=== PATIENT | female | born 1995 | race Caucasian/White ===

== ENCOUNTER 2020-03-04 16:06 | Emergency (ER) | payer MEDICAID ==
[2020-03-04] MEDS ORDERED: HYDROmorphone 1 MG/ML CARPUJECT IVP STA ×2 (16:31→17:42)
--- NOTE | 2020-03-04 16:33 | ED Physician Documentation ---
History of Present Illness - Stated complaint Stated Complaint: RT FLANK PX - Chief complaint Chief Complaint: Abd Pain - History obtained from History obtained from: Patient - History of Present Illness Timing: How many hours ago (27) Pain level max: 10 Pain level now: 10 Radiates to: began right CVA, now RLQ - Additonal information Additional information: 24-year-old female presents to the emergency department with chief complaint of acute onset right flank pain. She has been traveling in a car from [place] for 27 hours. Patient reports a history of nephrolithiasis bilaterally. In the past she has required ureter stents to help relieve obstruction. She no longer has these stents Over the last 24 hours patient has noted that the pain which initially began in her right CVA area has now migrated down to the right lower quadrant. However it is still also present within the right CVA. She has objective chills but no coyd fevers. Some nausea no vomiting. + dysuria but no hematuria. No diarrhea pmh: nephrolithiasis Meds: none Denies etoh; + tobacco 1710: pt is noted to be of her UA with fidnings of infection. Pt states that she is currently on her menses which began about 1 week ago. I discussed the concern for possible ectopic. blood type pending, US of kidneys and pelvis (OB) ordered. CT scan initially ordered has been discontinued Pt is now Review of Systems Constitutional: reports: Chills. denies: Fever Cardiac: denies: Chest pain / pressure, Palpitations Respiratory: denies: Dyspnea, Cough GI: reports: Abdominal Pain, Nausea. denies: Vomiting, Diarrhea : reports: Dysuria, LMP (02/25/20). denies: Frequency, Hesitancy, Hematuria Skin: denies: Rash, Lesions Musculoskeletal: reports: Back pain PD PAST MEDICAL HISTORY - Present Medications Home Medications: Ambulatory Orders Medication Instructions Recorded Confirmed Cephalexin [Keflex] 500 mg PO Q8HR #21 capsule 03/04/20 Hydrocodone/Acetaminophen [[place] 1 each PO BID PRN #5 tablet 03/04/20 5-325 Tablet] - Allergies Allergies/Adverse Reactions: Allergies Allergy/AdvReac Type Severity Reaction Status Date / Time No Known Drug Allergies Allergy Verified 03/04/20 16:19 PD ED PE EXPANDED - General General: Alert, In Pain - Cardiac Cardiac: Regular Rate, Radial strong equal - Respiratory Respiratory: Clear to ausultation ofe. No: Distress, Labored, Stridor - Abdomen Abdomen: Normal Bowel sounds, Other (Right CVA tenderness to palpation. Generalized right flank pain. Tenderness in the right lower quadrant. Negative McBurney's. 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 Cervical office is slightly open. There is no active vaginal bleeding at this time). No: CMT, Adnexal Mass - Back Back: Normal exam, CVA TTP right. No: Vertebral tenderness, CVA TTP left - Derm Derm: Normal color, Warm and dry - Neuro Neuro: Alert and Oriented X 3, CNII-XII intact, PERRL - GCS Eye Opening: Spontaneous Motor: Obeys Commands Verbal: Oriented Total: 15 Results - Vitals Vitals: Vital Signs - 24 hr 03/04/20 03/04/20 03/04/20 16:17 16:19 18:19 Temperature 36.8 C Heart Rate 94 94 92 Respiratory 20 18 16 Rate Blood Pressure 125/71 128/78 130/74 O2 Saturation 98 97 99 03/04/20 19:22 Temperature Heart Rate 59 L Respiratory 18 Rate Blood Pressure 106/68 O2 Saturation 98 Oxygen O2 Source Room air - Labs Labs: Laboratory Tests 03/04/20 03/04/20 03/04/20 16:25 16:25 16:25 WBC 6.8 RBC 5.08 Hgb 15.2 Hct 43.9 MCV 86.4 MCH 29.9 MCHC 34.6 RDW 12.0 Plt Count 295 MPV 10.3 Neut # (Auto) 4.7 Lymph # (Auto) 1.7 [place] # (Auto) 0.4 Eos # (Auto) 0.0 Baso # (Auto) 0.0 Absolute Nucleated RBC 0.00 Nucleated RBC % 0.0 Sodium 136 Potassium 3.1 L Chloride 102 Carbon Dioxide 22 Anion Gap 12.0 BUN 5 L Creatinine 0.7 Estimated GFR (MDRD) 105 Glucose 104 H Calcium 9.6 Total Bilirubin 1.5 H AST 23 ALT 22 Alkaline Phosphatase 48 Total Protein 8.4 H Albumin 5.0 Globulin 3.4 Albumin/Globulin Ratio 1.5 Lipase 33 HCG, Quant Urine Color YELLOW Urine Clarity HAZY Urine pH 6.0 Ur Specific [place] 1.015 Urine Protein NEGATIVE Urine Glucose (UA) NEGATIVE Urine Ketones 40 H Urine Occult Blood TRACE-INTA Urine Nitrite POSITIVE H Urine Bilirubin NEGATIVE Urine Urobilinogen 0.2 (NORMAL) Ur Leukocyte Esterase MODERATE H Urine RBC 0-5 Urine WBC >25 H Ur Squamous Epith Cells NONE SEEN Urine Bacteria Many H Ur Microscopic Review INDICATED Urine Culture Comments INDICATED Urine HCG, Qual POSITIVE Blood Type 03/04/20 03/04/20 16:25 17:25 WBC RBC Hgb Hct MCV MCH MCHC RDW Plt Count MPV Neut # (Auto) Lymph # (Auto) [place] # (Auto) Eos # (Auto) Baso # (Auto) Absolute Nucleated RBC Nucleated RBC % Sodium Potassium Chloride Carbon Dioxide Anion Gap BUN Creatinine Estimated GFR (MDRD) Glucose Calcium Total Bilirubin AST ALT Alkaline Phosphatase Total Protein Albumin Globulin Albumin/Globulin Ratio Lipase HCG, Quant 2018.00 Urine Color Urine Clarity Urine pH Ur Specific [place] Urine Protein Urine Glucose (UA) Urine Ketones Urine Occult Blood Urine Nitrite Urine Bilirubin Urine Urobilinogen Ur Leukocyte Esterase Urine RBC Urine WBC Ur Squamous Epith Cells Urine Bacteria Ur Microscopic Review Urine Culture Comments Urine HCG, Qual Blood Type O POSITIVE - Rads (name of study) Renal US: Radiology: Final report received (no stones or hydronephrosis) OB Pelvis Radiology: Final report received (There is no sonographic evidence of intrauterine conceptus Or ectopic . Unfortunately these findings are highly nonspecific and could represent early viable completed or impending as well as ectopic. Continued clinical and imaging follow-up including serial ult) PD MEDICAL DECISION MAKING - ED course Complexity details: reviewed results, re-evaluated patient, d/w patient, d/w eco industrial development consultant (Dr. Baez highway traffic control technician for OBGYN) ED course: 24-year-old female here with about 27 hours of acute right flank pain that has migrated down to her right lower quadrant. Patient reports a history of nephrolithiasis. She reports that she is currently on her menses but her urine is positive. - Patient's urine is night to try positive and suggestive of urinary tract infection. She was given ceftriaxone 1 g here in the emergency department and she will be discharged prescribed Keflex on discharge. She has no leukocytosis or fever. I have lower suspicion for Pyelonephritis At this time. - Because she is we completed a renal ultrasound to evaluate for stones or hydro give her location of pain and the history of previous renal colic requiring ureter stents. None were seen. She may still be passing a stone however it does not appear to be causing obstruction at this time. -OB pelvic ultrasound was completed. There was no finding of an IUP. Patient is O+. A limited pelvic exam was done and she had no adnexal tenderness. Her cervical office was slightly open at 1 cm. I discussed these phone results with Dr. Baez on-call for OB. He agrees that patient needs to return in 48 hours for a repeat serum hCG and if rising repeat OB ultrasound. At this time patient carries a diagnosis of threatened miscarriage, but can not r/o ectopic -I have discussed these findings in detail with the patient.She agrees to return to the emergency department in 48 hours for repeat testing. At this time her pain is controlled and she is not having any vaginal bleeding. We discussed that she is to return sooner for worsening pain, fever, severe vaginal bleeding, or any other emergent concerns . Departure - Departure Disposition: 01 Home, Self Care Clinical Impression: Threatened miscarriage in early , Right flank pain UTI (urinary tract infection) Qualifiers: Urinary tract infection type: acute cystitis Hematuria presence: without hematuria Qualified Code(s): N30.00 - Acute cystitis without hematuria Instructions: ED Abdominal Pain Rule Out Ectopic, ED Miscarriage Poss Prescriptions: Cephalexin [Keflex] 500 mg PO Q8HR #21 capsule Hydrocodone/Acetaminophen [[place] 5-325 Tablet] 1 each PO BID PRN #5 tablet PRN Reason: Pain Comments: Aydee I hope that you feel better soon. You are found to be today. You had reported vaginal bleeding. We did do a pelvic ultrasound and at this time we cannot confirm an intrauterine . This may mean that you are in the process of having a miscarriage, it is too early to see a or that there is outside of your uterus. It is critical that you return here within 48 hours for repeat hormone levels and ultrasound imaging. The ultrasound of your kidneys did not show any stones or swelling in the kidne ys. We do note that you have an infection in your urine today. We have given you a first dose of IV antibiotics in the emergency department and tomorrow you must fill the prescription for the oral antibiotics and begin taking as prescribed If your pain is worsening, you have fevers, you have uncontrolled vomiting, a racing heart, or severe vaginal bleeding then return immediately to the emergenc y department for recheck. Do not return to [place] until you have had this recheck.
[2020-03-04 16:41] LABS: BASOPHILS % (AUTO) 0.1 %; HGB - HEMOGLOBIN 15.2 g/dL (12.0-16.0); LYMPHOCYTES # (AUTO) 1.7 10^3/uL (1.5-3.5); LYMPHOCYTES % (AUTO) 25.4 %; MEAN CORPUSCULAR HEMOGLOBIN 29.9 pg (27.0-31.0); MEAN CORPUSCULAR HGB CONC 34.6 g/dL (32.0-36.0); MEAN CORPUSCULAR VOLUME 86.4 fL (81.0-99.0); MEAN PLATELET VOLUME 10.3 fL (7.9-10.8); MONOCYTES # (AUTO) 0.4 10^3/uL (0.0-1.0); MONOCYTES % (AUTO) 5.7 %; NEUTROPHILS # (AUTO) 4.7 10^3/uL (1.5-6.6); NEUTROPHILS % (AUTO) 68.7 %; PLT - PLATELET COUNT 295 10^3/uL (130-450); RED BLOOD COUNT 5.08 10^6/uL (4.20-5.40); WHITE BLOOD COUNT 6.8 x10^3/uL (4.8-10.8)
[2020-03-04 16:46] LABS: BILIRUBIN,URINE NEGATIVE (NEGATIVE); GLUCOSE, URINE (UA) NEGATIVE (NEGATIVE); KETONES,URINE (UA) 40 mg/dL (NEGATIVE); LEUKOCYTE ESTERASE, URINE MODERATE (NEGATIVE); NITRITE,URINE POSITIVE (NEGATIVE); OCCULT BLOOD,URINE TRACE-INTA (NEGATIVE); PROTEIN,URINE NEGATIVE (NEGATIVE); UROBILINOGEN,URINE 0.2 (NORMAL) E.U./dL (NORMAL)
[2020-03-04 16:47] LABS: CLARITY,URINE HAZY (CLEAR)
[2020-03-04 16:49] LABS: HCG UR QUAL POSITIVE
[2020-03-04 16:54] LABS: ALBUMIN/GLOBULIN RATIO 1.5 (1.0-2.2); BILIRUBIN,TOTAL 1.5 mg/dL (0.2-1.0); CALCIUM 9.6 mg/dL (8.5-10.3); CREATININE 0.7 mg/dL (0.4-1.0); TOTAL PROTEIN 8.4 g/dL (6.7-8.2)
[2020-03-04 16:56] LABS: BACTERIA,URINE Many /HPF (None Seen); RBC,URINE 0-5 /HPF (0-5); SQUAMOUS EPITHELIAL CELL,UR NONE SEEN (<= Few)
[2020-03-04] MEDS ORDERED: cefTRIAXone 1 GM in SODIUM CHLORIDE 0.9% MINIBAG 100 ML IV STA (17:17)
[2020-03-04] MEDS ORDERED: SODIUM CHLORIDE 0.9% 1,000 ML IV STA (18:18)
[2020-03-04] MEDS ORDERED: POTASSIUM CHLORIDE 20 MEQ TABLET PO STA (18:22)
--- NOTE | 2020-03-04 19:11 | Ultrasound Report ---
PROCEDURE: OB First Trimester INDICATIONS: Vaginal bleeding and right frontal length pain in the setting of TECHNIQUE: Real-time scanning was performed of the fetus and maternal pelvic organs, with image documentation. COMPARISON: None FINDINGS: There is irregular septated cystic material filling the uterine cavity. There is no well-defined gest ational sac or fetus identified. No placenta is clearly delineated. The endometrium does demonstrate increased vascularity. There is no evidence of ectopic . There is small volume fluid in the cul-de-sac. IMPRESSION: There is no sonographic evidence of intrauterine conceptus or ectopic . Unfortunately, these findings are highly nonspecific and could represent early viable , completed , or i mpending , as well as ectopic. Continued clinical and imaging follow-up, including serial ult rasound and trending of quantitative hCG will be needed to differentiate these entities. Reviewed by: Bryant Jeffrey MD on 03/04/2020 7:10 PM PDT Approved by: Bryant Jeffrey MD on 03/04/2020 7:10 PM PDT Station ID: [id number]
[2020-03-04 19:23] VITALS: BP 106/68
--- NOTE | 2020-03-04 20:42 | Ultrasound Report ---
PROCEDURE: OB First Trimester INDICATIONS: Vaginal bleeding and right frontal length pain in the setting of TECHNIQUE: Real-time scanning was performed of the fetus and maternal pelvic organs, with image documentation. COMPARISON: None FINDINGS: There is irregular septated cystic material filling the uterine cavity. There is no well-defined gest ational sac or fetus identified. No placenta is clearly delineated. The endometrium does demonstrate increased vascularity. There is no evidence of ectopic . There is small volume fluid in the cul-de-sac. IMPRESSION: There is no sonographic evidence of intrauterine conceptus or ectopic . Unfortunately, these findings are highly nonspecific and could represent early viable , completed , or i mpending , as well as ectopic. Continued clinical and imaging follow-up, including serial ult rasound and trending of quantitative hCG will be needed to differentiate these entities. Reviewed by: Bryant Jeffrey MD on 03/04/2020 8:40 PM PDT Approved by: Bryant Jeffrey MD on 03/04/2020 8:40 PM PDT Station ID: [id number]
--- NOTE | 2020-03-05 16:03 | Ultrasound Report ---
PROCEDURE: Retroperitoneal ultrasound INDICATIONS: Right flank pain, history of renal stones TECHNIQUE: Real-time scanning was performed of the retroperitoneal organs, with image documentation. COMPARISON: None. FINDINGS: Kidneys: Both kidneys normal in size and appearance. No hydronephrosis. No evidence of renal atrophy. No shadowing renal or proximal ureteral calculus demonstrated. Urinary bladder: No post void residual. Urinary bladder unremarkable. IMPRESSION: Normal renal ultrasound. Reviewed by: Bryant Jeffrey MD on 03/04/2020 7:11 PM PDT Approved by: Bryant Jeffrey MD on 03/04/2020 7:11 PM PDT Station ID: [id number]
== END 2020-03-04 20:43 | disposition home or self-care (01) ==
LOC: ED 16:06
DX: O20.0 Threatened abortion (principal); O23.11 Infections of bladder in pregnancy, first trimester; Z3A.01 Less than 8 weeks gestation of pregnancy
CPT/HCPCS: 36415; 76770; 76801; 76817; 80053; 81001; 81025; 83690; 84702; 85025; 86900; 86901; 87077; 87086; 87181; 96365; 96366; 96375; 96376; 99284; A9270; J1170; 81003

== ENCOUNTER 2020-03-05 10:20 | Inpatient (IN) | payer MEDICAID ==
[2020-03-05 10:57] LABS: BASOPHILS % (AUTO) 0.2 %; EOSINOPHILS % (AUTO) 0.2 %; HGB - HEMOGLOBIN 14.5 g/dL (12.0-16.0); LYMPHOCYTES # (AUTO) 1.5 10^3/uL (1.5-3.5); MEAN CORPUSCULAR HEMOGLOBIN 29.8 pg (27.0-31.0); MEAN CORPUSCULAR HGB CONC 33.7 g/dL (32.0-36.0); MEAN CORPUSCULAR VOLUME 88.3 fL (81.0-99.0); MEAN PLATELET VOLUME 10.1 fL (7.9-10.8); MONOCYTES # (AUTO) 0.2 10^3/uL (0.0-1.0); MONOCYTES % (AUTO) 4.4 %; NEUTROPHILS # (AUTO) 3.5 10^3/uL (1.5-6.6); NEUTROPHILS % (AUTO) 66.8 %; PLT - PLATELET COUNT 282 10^3/uL (130-450); RED BLOOD COUNT 4.87 10^6/uL (4.20-5.40); RED CELL DISTRIBUTION WIDTH 12.2 % (12.0-15.0); WHITE BLOOD COUNT 5.3 x10^3/uL (4.8-10.8)
[2020-03-05 11:17] LABS: ALBUMIN 4.2 g/dL (3.2-5.5); ALBUMIN/GLOBULIN RATIO 1.4 (1.0-2.2); BILIRUBIN,TOTAL 1.3 mg/dL (0.2-1.0); CALCIUM 9.3 mg/dL (8.5-10.3); CREATININE 0.7 mg/dL (0.4-1.0); TOTAL PROTEIN 7.3 g/dL (6.7-8.2)
--- NOTE | 2020-03-05 12:34 | ED Physician Documentation ---
PD HPI FEMALE - Stated complaint Stated Complaint: FEMALE /FEVER - Chief complaint Chief Complaint: Abd Pain - History obtained from History obtained from: Patient - History of Present Illness Timing - onset: How many days ago (2-3) Timing - duration: Days (2-3) Timing - details: Gradual onset, Still present Associated symptoms: Pelvic pain, Vaginal bleeding. No: Fever, Vaginal discharge Contributing factors: (She states her last period was about 2 weeks ago so is not sure how far she is) Recently seen: Emergency Dept (yesterday with Quant 2018, and U/S done showing no found IUP nor adnexal abnormal.) Review of Systems Constitutional: reports: Fever (felt flushed/warm with pain episodes last night.), Chills Nose: denies: Rhinorrhea / runny nose, Congestion Throat: denies: Sore throat Respiratory: denies: Cough GI: reports: Abdominal Pain, Nausea. denies: Vomiting, Diarrhea : reports: Vaginal bleeding, Now EGA. 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 CONTROL TECHNICIAN: None : None HEENT: None Psych: None Musculoskeletal: None Derm: None - Past Surgical History Past Surgical History: Yes - Present Medications Home Medications: Ambulatory Orders Medication Instructions Recorded Confirmed Cephalexin [Keflex] 500 mg PO Q8HR #21 capsule 03/04/20 Hydrocodone/Acetaminophen [[place] 1 each PO BID PRN #5 tablet 03/04/20 5-325 Tablet] - Allergies Allergies/Adverse Reactions: Allergies Allergy/AdvReac Type Severity Reaction Status Date / Time No Known Drug Allergies Allergy Verified 03/05/20 10:29 - Social History Does the pt smoke?: No Smoking Status: Never smoker Does the pt drink ETOH?: Yes Does the pt have substance abuse?: No - Immunizations Immunizations are current?: Yes PD ED PE NORMAL - Vitals Vital signs reviewed: Yes - General General: Alert and oriented X 3, Well developed/nourished, Other (She appears in considerable pain and holding her lower abdomen.) - Neck Neck: Supple, no meningeal sign, No adenopathy - Cardiac Cardiac: RRR, No murmur - Respiratory Respiratory: Clear bilaterally - Abdomen Abdomen: Normal bowel sounds, Soft, Non distended, Other (The patient is tender in the suprapubic and lower abdomen area. Bowel sounds are present but diminished. She is not tender in the upper abdomen. There is no percussion or rebound tenderness.) - Female Female : Deferred - Rectal Rectal: Deferred - Back Back: No CVA TTP - Derm Derm: Normal color, Warm and dry - Extremities Extremities: Normal ROM s pain, No edema, No calf tenderness / cord - Neuro Neuro: Alert and oriented X 3, No motor deficit, Normal speech Results - Vitals Vitals: Vital Signs - 24 hr 03/05/20 03/05/20 03/05/20 10:30 11:58 13:00 Temperature 37 C Heart Rate 84 63 77 Respiratory 16 21 18 Rate Blood Pressure 108/91 H 119/54 L 116/74 O2 Saturation 100 100 98 03/05/20 03/05/20 15:00 15:59 Temperature Heart Rate 50 L 55 L Respiratory 16 16 Rate Blood Pressure 115/64 125/80 O2 Saturation 100 100 Oxygen O2 Source Room air - Labs Labs: Laboratory Tests 03/05/20 03/05/20 03/05/20 10:54 10:54 10:54 WBC 5.3 RBC 4.87 Hgb 14.5 Hct 43.0 MCV 88.3 MCH 29.8 MCHC 33.7 RDW 12.2 Plt Count 282 MPV 10.1 Neut # (Auto) 3.5 Lymph # (Auto) 1.5 [place] # (Auto) 0.2 Eos # (Auto) 0.0 Baso # (Auto) 0.0 Absolute Nucleated RBC 0.00 Nucleated RBC % 0.0 Sodium 140 Potassium 3.6 Chloride 110 Carbon Dioxide 22 Anion Gap 8.0 BUN 7 Creatinine 0.7 Estimated GFR (MDRD) 105 Glucose 109 H Calcium 9.3 Total Bilirubin 1.3 H AST 23 ALT 22 Alkaline Phosphatase 43 Total Protein 7.3 Albumin 4.2 Globulin 3.1 Albumin/Globulin Ratio 1.4 Lipase 34 HCG, Quant 1875.00 Urine Color Urine Clarity Urine pH Ur Specific [place] Urine Protein Urine Glucose (UA) Urine Ketones Urine Occult Blood Urine Nitrite Urine Bilirubin Urine Urobilinogen Ur Leukocyte Esterase Urine RBC Urine WBC Ur Squamous Epith Cells Urine Bacteria Ur Microscopic Review Urine Culture Comments 03/05/20 11:45 WBC RBC Hgb Hct MCV MCH MCHC RDW Plt Count MPV Neut # (Auto) Lymph # (Auto) [place] # (Auto) Eos # (Auto) Baso # (Auto) Absolute Nucleated RBC Nucleated RBC % Sodium Potassium Chloride Carbon Dioxide Anion Gap BUN Creatinine Estimated GFR (MDRD) Glucose Calcium Total Bilirubin AST ALT Alkaline Phosphatase Total Protein Albumin Globulin Albumin/Globulin Ratio Lipase HCG, Quant Urine Color YELLOW Urine Clarity SL. CLOUDY Urine pH 6.5 Ur Specific [place] 1.015 Urine Protein NEGATIVE Urine Glucose (UA) NEGATIVE Urine Ketones 40 H Urine Occult Blood NEGATIVE Urine Nitrite NEGATIVE Urine Bilirubin NEGATIVE Urine Urobilinogen 0.2 (NORMAL) Ur Leukocyte Esterase LARGE H Urine RBC 0-5 Urine WBC >25 H Ur Squamous Epith Cells MANY Squamous H Urine Bacteria Few Ur Microscopic Review INDICATED Urine Culture Comments NOT INDICATED - Rads (name of study) OB U/S Radiology: Prelim report reviewed (No ovarian abnormalities seen. There is material in the uterus. There is thickened endometrial tissue.), See rad report PD MEDICAL DECISION MAKING - ED course Complexity details: reviewed results, re-evaluated patient (She is requiring repeated doses of pain medicines. Her ultrasound does show a fair amount of material in the uterus likely blood and clots. She is not having significant bleeding but her pain is intractable. I talked with Dr. Manning is on-call for ART GLASS DESIGNER who will come see the patient), considered differential (Patient has had increased pain and moderate increase in bleeding since yesterday. There was concern for potential miscarriage versus undiagnosed ectopic with a hCG level of 2000 and the ultrasound not showing a clear IUP or ovarian problems), d/w patient Departure - Departure Disposition: ED Transfer to [facility] Clinical Impression: Pelvic pain, Incomplete miscarriage Condition: Stable Record reviewed to determine appropriate education?: Yes
[2020-03-05] MEDS ORDERED: HYDROmorphone 1 MG/ML CARPUJECT IVP STA ×3 (12:40→15:12)
[2020-03-05] MEDS ORDERED: SODIUM CHLORIDE 0.9% 1,000 ML IV STA (12:40)
[2020-03-05] MEDS ORDERED: KETOROLAC 30 MG/ML VIAL IVP STA (12:41)
[2020-03-05] MEDS ORDERED: ONDANSETRON 4 MG/2 ML VIAL IVP STA (12:41)
[2020-03-05 14:19] LABS: BILIRUBIN,URINE NEGATIVE (NEGATIVE); GLUCOSE, URINE (UA) NEGATIVE (NEGATIVE); KETONES,URINE (UA) 40 mg/dL (NEGATIVE); LEUKOCYTE ESTERASE, URINE LARGE (NEGATIVE); NITRITE,URINE NEGATIVE (NEGATIVE); OCCULT BLOOD,URINE NEGATIVE (NEGATIVE); PH,URINE 6.5 PH (5.0-7.5); PROTEIN,URINE NEGATIVE (NEGATIVE); UROBILINOGEN,URINE 0.2 (NORMAL) E.U./dL (NORMAL)
[2020-03-05 14:22] LABS: CLARITY,URINE SL. CLOUDY (CLEAR)
[2020-03-05 14:44] LABS: BACTERIA,URINE Few /HPF (None Seen); RBC,URINE 0-5 /HPF (0-5); SQUAMOUS EPITHELIAL CELL,UR MANY Squamous (<= Few)
--- NOTE | 2020-03-05 15:31 | Ultrasound Report ---
PROCEDURE: OB First Trimester INDICATIONS: increased RLQ pain from yesterday OUTSIDE/PRIOR DATING DATA: Last menstrual period (LMP): Unknown. LMP-based estimated date of delivery (JEVON): Unknown. First dating scan (date and location): 03/04/2020. Estimated date of delivery (JEVON) from first dating scan: Not applicable. TECHNIQUE: Real-time scanning was performed of the fetus and maternal pelvic organs, with image documentation. COMPARISON: OB ultrasound 03/04/2020 FINDINGS: Embryo: There is no visualized intrauterine or extrauterine . Endometrium is heterogeneous with mild appearance of increased vascularity. Measurement variability in dating: +/- 4 weeks by LMP, +/- 7 days by mean sac diameter (use before 6 weeks gestation if crown-rump length not able to be measured), +/- 5 days by crown-rump length (6-12 weeks gestation). Maternal organs: Ovaries are unremarkable. Limited images through the kidneys demonstrate no hydron ephrosis. IMPRESSION: 1. Unchanged appearance compared to prior exam without demonstration of intra or extrauterine pregnan cy. There is irregularity within the endometrium increased vascularity. Recommend continued interval follow-up with ultrasound and correlation to beta hCG levels as appropriate. Differential diagnosis r emains early too small for visualization, completed or impending for nonvisualized ectopic. Reviewed by: Charlee Pérez MD on 03/05/2020 3:29 PM PDT Approved by: Charlee Pérez MD on 03/05/2020 3:29 PM PDT Station ID: [id number]
--- NOTE | 2020-03-05 15:32 | Ultrasound Report ---
PROCEDURE: OB First Trimester INDICATIONS: increased RLQ pain from yesterday OUTSIDE/PRIOR DATING DATA: Last menstrual period (LMP): Unknown. LMP-based estimated date of delivery (JEVON): Unknown. First dating scan (date and location): 03/04/2020. Estimated date of delivery (JEVON) from first dating scan: Not applicable. TECHNIQUE: Real-time scanning was performed of the fetus and maternal pelvic organs, with image documentation. COMPARISON: OB ultrasound 03/04/2020 FINDINGS: Embryo: There is no visualized intrauterine or extrauterine . Endometrium is heterogeneous with mild appearance of increased vascularity. Measurement variability in dating: +/- 4 weeks by LMP, +/- 7 days by mean sac diameter (use before 6 weeks gestation if crown-rump length not able to be measured), +/- 5 days by crown-rump length (6-12 weeks gestation). Maternal organs: Ovaries are unremarkable. Limited images through the kidneys demonstrate no hydron ephrosis. IMPRESSION: 1. Unchanged appearance compared to prior exam without demonstration of intra or extrauterine pregnan cy. There is irregularity within the endometrium increased vascularity. Recommend continued interval follow-up with ultrasound and correlation to beta hCG levels as appropriate. Differential diagnosis r emains early too small for visualization, completed or impending for nonvisualized ectopic. Reviewed by: Charlee Pérez MD on 03/05/2020 3:30 PM PDT Approved by: Charlee Pérez MD on 03/05/2020 3:30 PM PDT Station ID: [id number]
[2020-03-05] MEDS ORDERED: LACTATED RINGERS 1,000 ML IV STA (16:27)
[2020-03-05] MEDS ORDERED: fentaNYL 100 MCG/2 ML VIAL IVP STA (16:28)
[2020-03-05] MEDS ORDERED: fentaNYL 100 MCG/2 ML VIAL IVP ONE (17:32)
--- NOTE | 2020-03-05 17:35 | HISTORY & PHYSICAL EXAMINATION ---
Chief Complaint - Chief Complaint Chief Complaint: Cramping History of Present Illness - History of Present Illness HPI Comment/Other: 2nd visit to ER within 24h for abd pain. At first felt like R flank pain--pt had cystitis treated with cephalosporin and taking keflex at home. [place] diagnosed. Last hs pt had increasing bleeding changed pads 4x overnight. Today changed about 3x. 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 No tobacco or drug use. ) Meds/Allgy - Home Medications Home Medications: Ambulatory Orders Medication Instructions Recorded Confirmed Cephalexin [Keflex] 500 mg PO Q8HR #21 capsule 03/04/20 Hydrocodone/Acetaminophen [[place] 1 each PO BID PRN #5 tablet 03/04/20 5-325 Tablet] - Allergies Allergies/Adverse Reactions: Allergies Allergy/AdvReac Type Severity Reaction Status Date / Time No Known Drug Allergies Allergy Verified 03/05/20 10:29 Exam - Vital Signs Vital Signs: Vital Signs x48h Temp Pulse Resp BP Pulse Ox 03/05/20 17:00 70 16 131/73 H 100 03/05/20 15:59 55 L 16 125/80 100 03/05/20 15:00 50 L 16 115/64 100 03/05/20 13:00 77 18 116/74 98 03/05/20 11:58 63 21 119/54 L 100 03/05/20 10:30 98.6 F 84 16 108/91 H 100 - Physical Exam Comments/Other: Alert, grimacing, holding abdomen Cor RRR no murmurs Lungs CTA bilat Abd soft, no rebound, no guard, mildly tender Conclusion/Plan - Problem List (1) Incomplete miscarriage Conclusion/Plan: 24yo G1 with likely incomplete SAB. Ultrasound has a bizarre appearance of the uterine cavity--some blood flow there and lots of debris--4cm diameter. HCG dropped in 24h from 2018 to 1875. Doubt molar due to that. Doubt ectopic preg due to large volume of debris in the uterine cavity, absence of adnexal masses, and lack of free fluid. Pt currently in severe pain and has required multiple rounds of narcotics. Discussed options for immediate surgical vs. at home medical management of SAB. Surgical tx works nearly always and home mgmt can fail 10% of the time. Pt desires D&C. Discussed procedure and recovery. Risks include bleeding, infection, trauma to local organs, anesthesia complications, and failure to cure. All questions answered and consent signed. OR team being called in. Has been NPO for hours. Rh + If patient wakes from surgery and does not feel better then will need to eval for other causes of abd pain. Hx of kidney stones but it doesn't feel like that to the pt. Acute cystitis being treated on antibiotic day #2. Renal US yesterday was normal; no hydro. Normal CBC and CMP. Has not gotten a CT scan. - Lab Results Fish Bones: 03/05/20 10:54 03/05/20 10:54
--- NOTE | 2020-03-05 18:11 | ANESTHESIA ---
Pre-Anesthesia VS, & Labs - Diagnosis incomplete AB - Procedure suction D&C Vital Signs: Temp Pulse Resp BP Pulse Ox 37 C 70 16 131/73 H 100 03/05/20 10:30 03/05/20 17:00 03/05/20 17:00 03/05/20 17:00 03/05/20 17:00 Height 5 ft 6 in Weight (kg) 96.162 kg Body Mass Index 34.2 - NPO >8 hours - Is Patient ?: Yes (missed AB) - Lab Results Current Lab Results: Laboratory Tests 03/05/20 10:54: HCG, Quant 1875.00 03/05/20 10:54: Sodium 140, Potassium 3.6, Chloride 110, Carbon Dioxide 22, Anion Gap 8.0, BUN 7, Creatinine 0.7, Estimated GFR (MDRD) 105, Glucose 109 H, Calcium 9.3, Total Bilirubin 1.3 H, AST 23, ALT 22, Alkaline Phosphatase 43, Total Protein 7.3, Albumin 4.2, Globulin 3.1, Albumin/Globulin Ratio 1.4, Lipase 34 03/05/20 10:54: WBC 5.3, RBC 4.87, Hgb 14.5, Hct 43.0, MCV 88.3, MCH 29.8, MCHC 33.7, RDW 12.2, Plt Count 282, MPV 10.1, Neut # (Auto) 3.5, Lymph # (Auto) 1.5, [place] # (Auto) 0.2, Eos # (Auto) 0.0, Baso # (Auto) 0.0, Absolute Nucleated RBC 0.00, Nucleated RBC % 0.0 Fish Bones: 03/05/20 10:54 03/05/20 10:54 Home Medications and Allergies Active Medications Lactated Ringer's (Lr) 1,000 mls @ 500 mls/hr IV .Q2H STA Stop: 03/05/20 18:26 Last Admin: 03/05/20 16:47 Dose: 500 mls/hr Documented by: Allergies/Adverse Reactions: Allergies Allergy/AdvReac Type Severity Reaction Status Date / Time No Known Drug Allergies Allergy Verified 03/05/20 10:29 Anes History & Medical History - Anesthetic History Anesthesia Complications: reports: No previous complications Family history of Anesthesia Complications: Denies Family history of Malignant Hyperthermia: Denies - Medical History Cardiovascular: reports: None Pulmonary: reports: None Gastrointestinal: reports: None Urinary: reports: None Neuro: reports: None Musculoskeletal: reports: None Endocrine/Autoimmune: reports: None Blood Disorders: reports: None Skin: reports: None Smoking Status: Never smoker - Surgical History Urologic: Kidney stents Other Past Surgical History: None Exam General: Alert, Oriented x3, Cooperative Dental: WNL Mouth Openin Fingerbreadth Neck Mobility: Normal Mallampati classification: II Thyromental Distance: greater than 6 cm Respiratory: Lungs clear, Normal breath sounds Cardiovascular: Regular rate Neurological: Normal speech Mental/Cognitive Status: Alert/Oriented X3, Normal for patient Cognitive Status: Within normal limits Plan Anesthesia Type: MAC Consent for Procedure(s) Verified and Reviewed: Yes Code Status: Attempt Resuscitation ASA classification: 2-Mild systemic disease Is this case an emergency?: Yes
[2020-03-05] MEDS ORDERED: LACTATED RINGERS 1,000 ML IV ONE ×2 (18:24→20:00)
[2020-03-05] MEDS ORDERED: LIDOCAINE 1%-EPI 1:100000 20 ML MDV ONE (18:33)
[2020-03-05] MEDS ORDERED: SILVER NITRATE APPLICATOR TOP ONE (18:34)
[2020-03-05] MEDS ORDERED: KETOROLAC 30 MG/ML VIAL IVP ONE (18:47)
[2020-03-05] MEDS ORDERED: MIDAZOLAM 2 MG/2 ML VIAL IVP ONE (18:47)
[2020-03-05] MEDS ORDERED: KETAMINE 500 MG/10 ML VIAL IVP ONE (18:47)
[2020-03-05] MEDS ORDERED: PROPOFOL 200 MG/20 ML VIAL IVP ONE (18:47)
[2020-03-05] MEDS ORDERED: LIDOCAINE 1%-EPI 1:100000 20 ML MDV SUBQ ONE (19:05)
--- NOTE | 2020-03-05 19:36 | OPERATIVE REPORT ---
Operative Report - General Procedure Date: 03/05/20 Pre-Op Diagnosis: Incomplete miscarriage Procedure Performed: D&C Post Op Diagnosis: same - Procedure Note Primary Surgeon: Sabi Manning Anesthesia Technique: Moderate sedation Pathology: Products of conception IV Fluids (mL): 700 Estimated Blood Loss (mL): 60 Findings: Normal external geniatlia Complications: none
[2020-03-05] MEDS: fentaNYL 100 MCG/2 ML VIAL ONE ×2 (19:47→19:55)
[2020-03-05] MEDS ORDERED: ONDANSETRON 4 MG/2 ML VIAL IVP PRN ×2 (20:32→21:40)
[2020-03-05] MEDS ORDERED: ZOLPIDEM 5 MG TABLET PO ONE ×2 (20:37→22:00)
[2020-03-05] MEDS ORDERED: oxyCODONE 5 MG TABLET PO PRN (20:39)
[2020-03-05] MEDS ORDERED: LACTATED RINGERS 1,000 ML IV SCH (21:00)
[2020-03-05] MEDS ORDERED: ACETAMINOPHEN 500 MG TABLET PO SCH ×2 (21:00→22:00)
[2020-03-05] MEDS ORDERED: IOVERSOL 320 100 ML VIAL IVP ONE (21:24)
[2020-03-05] MEDS: oxyCODONE 5 MG TABLET PO PRN (21:48)
--- NOTE | 2020-03-05 21:53 | CT Report ---
PROCEDURE: Abdomen/Pelvis W INDICATIONS: persistent abd pain. Got D C at 17:00 for SAB CONTRAST: IV CONTRAST: Optiray 320 ml: 100 PO CONTRAST: *NO PO CONTRAST TECHNIQUE: After the administration of oral and intravenous contrast, 5 mm thick sections acquired from the diap hragms to the symphysis. 5 mm thick coronal and sagittal reformats were acquired. For radiation dos e reduction, the following was used: automated exposure control, adjustment of mA and/or kV accordin g to patient size. COMPARISON: None. FINDINGS: Image quality: Excellent. ABDOMEN: Lung bases: Minimal bibasilar atelectasis. Heart size is normal. Solid organs: Liver and spleen are normal in size and enhancement. Gallbladder is unremarkable Beau iary system is non dilated. Pancreas enhances normally. No adrenal nodules. Kidneys demonstrate no rmal size and enhancement, without hydronephrosis. Peritoneum and bowel: Bowel loops demonstrate normal wall thickness and caliber. No free fluid or a ir. Nodes and vessels: No retroperitoneal or mesenteric adenopathy by size criteria. Aorta and inferior vena cava are normal in size. Miscellaneous: No ventral hernias. PELVIS: Genitourinary: Bladder wall thickness is normal. Miscellaneous: No inguinal hernias or adenopathy. There is expansile tissue filling the endometrial cavity measuring 5.8 cm in diameter. There is hypervascularity. Cannot exclude acute hemorrhage. Con v block saw operator gestational trophoblastic neoplasm (molar ). Bones: No suspicious bony lesions. No vertebral body compression fractures. IMPRESSION: Expansile heterogeneous hypervascular tissue expanding the endometrial cavity. Cannot ex clude acute extravasation. Consider molar versus products of conception or hemorrhage and c lot. Suggest clinical correlation. Reviewed by: Mauricio Lindsay MD on 03/05/2020 9:52 PM PDT Approved by: Mauricio Lindsay MD on 03/05/2020 9:52 PM PDT Station ID: [id number]
--- NOTE | 2020-03-05 22:50 | DISCHARGE TRANSFER SUMMARY ---
"Transfer Summary Admit Date: 03/05/20 Transfer Date: 03/05/20 Discharging Provider: Sabi Manning Code Status: Attempt Resuscitation Condition at Discharge: Stable Discharge Disposition: 02 Transfer Acute Care Hosp - DIAGNOSES Admission Diagnoses: Uterine mass Abdominal pain Vaginal bleeding Discharge Diagnoses with Status of Each Condition: same dx and not improved - CONSULTS | PROCEDURES Procedures: D&C 03/05/20 - HOSPITAL COURSE Hospital Course: Patient had been seen in the ER twice in 24h for abdominal pain. Yesterday she was diagnosed with acute cystitis and she had an abnormal UA. Renal US was normal. Patient has a history of nephrolithiasis but this current pain does not feel like a stone to her. Got a cephalosporin in the ER followed by maryse at home. Pain did not improve, became more midline and crampy, 10/10. Pt had found out yesterday that she was . Was not trying to conceive and was unaware of . Menses have been regular and monthly until this month--menses came on time but lasted for 2w which is unusual. Patient had a large volume of debris in her uterus as well as a dropping HCG. No adnexal masses or free fluid present. Patient is Rh+. The suspected diagnosis was incomplete . She went to the OR at 19:00 for a D&C. There was some tissue extracted but not as much as expected with US appearance. Her pain did not improve in the recovery room so further evaluation was done. CT scan is suspicious for possible molar . Myometrium is abnormally small. There is an intracavitary mass measuring 4cm. Patient's pain has persisted at 7-10/10 and she is continuing to bleed through a pad hourly. She has received 1g of tranexamic acid around 19:30. We are unable to do MRI to further evaluate the mass--machine not available until 4d from now. With her pain and bleeding, will transport to [facility] for ongoing evaluation and management. With this clinical situation she could also need interventional radiology assistance not available here. - ALLERGIES Allergies/Adverse Reactions: Allergies Allergy/AdvReac Type Severity Reaction Status Date / Time No Known Drug Allergies Allergy Verified 03/05/20 10:29 - MEDICATIONS Home Medications: Ambulatory Orders Medication Instructions Recorded Confirmed Cephalexin [Keflex] 500 mg PO Q8HR #21 capsule 03/04/20 Hydrocodone/Acetaminophen [[place] 1 each PO BID PRN #5 tablet 03/04/20 5-325 Tablet] - PHYSICAL EXAM AT DISCHARGE General Appearance: positive: Mild distress Abdomen: positive: Tenderness (mild). negative: Guarding, Rebound - LABS Result Diagrams: 03/05/20 10:54 03/05/20 10:54 - DIAGNOSTIC IMAGING Diagnostic Imaging Results: Final report reviewed, Discussed with radiologist, Read contemporaneously"
[2020-03-06] MEDS: oxyCODONE 5 MG TABLET PO PRN (01:22)
[2020-03-06 01:32] VITALS: BP 115/51
--- NOTE | 2020-03-06 04:50 | OPERATIVE REPORT ---
DATE OF SERVICE: 03/05/2020 Physician: Sabi Manning MD PREOPERATIVE DIAGNOSIS: Incomplete . POSTOPERATIVE DIAGNOSIS: Incomplete . PROCEDURE PERFORMED: Suction dilation and curettage. 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 ANESTHESIA: Sedation. IV FLUIDS: 700 mL ESTIMATED BLOOD LOSS: 600 mL COUNTS: Correct x2. COMPLICATIONS: None apparent. DISPOSITION: Stable to the recovery room. PROPHYLAXIS: SCDS to bilateral lower extremities. SPECIMENS: Products of conception sent to pathology. COUNSELING: Patient was not aware that she was but has come in twice for abdominal pain in the past two days. She was diagnosed with cystitis yesterday and today her pain became more midline and cramping in nature. Her ultrasound had complex debris within the uterus. There was no embryo se en. It mostly looked like degenerating placenta with free blood flow around it. She was counseled t hat dilation and curettage would immediately improve her pain if it is due to her miscarriage. She w as offered medical management and she declined that. DESCRIPTION OF PROCEDURE: The patient was brought to the operating room, where she was induced with sedation. She was placed in [place] in low lithotomy position Her uterus was axial. She was prepp ed and draped in the usual sterile fashion. A speculum was placed and a single-tooth tenaculum was a pplied to the anterior lip of the cervix. The cervix was easily dilated to 8 mm. An 8 mm suction cu rette was placed in the uterine cavity and twirled around. Products of conception were evacuated. A nother pass with a more rigid plastic curette was performed and then finally a pass with a metal cure tte and good cry was felt throughout the uterine cavity. The patient had a little bit of bleeding at first and she got a gram of TXA for that. The bleeding slowed down nicely and her procedure was ter minated. All instruments were removed. She was washed and then returned to the supine position prio r to waking. If the D and C does not improve her pain, then she will undergo further workup. TD: 03/05/2020 19:52
== END 2020-03-06 01:53 | disposition short-term general hospital (02) | DRG 770 ==
LOC: ED 10:20 → MS3 20:32
PROVIDERS: ADMIT Obstetrics & Gynecology; ATTEND Obstetrics & Gynecology
PROC: 10D17ZZ Extraction of Products of Conception, Retained, Via Natural or Artificial Opening (ICD-10-PCS; principal; 2020-03-05 18:21)
DX: O03.1 Delayed or excessive hemorrhage following incomplete spontaneous abortion (principal); N85.9 Noninflammatory disorder of uterus, unspecified; R10.2 Pelvic and perineal pain
CPT/HCPCS: 36415; 59812; 74177; 76801; 76817; 80053; 81001; 83690; 84702; 85025; 96361; 96374; 96375; 96376; 99284; 99285; A9270; J1170; J7120; Q9967; 81003; 86900; 86901; 87086

== ENCOUNTER 2020-03-06 02:07 | Outpatient (CLI) | payer MEDICAID | END 2020-03-06 02:08 | disposition short-term general hospital (02) | LOC: EMS 02:07 | PROVIDERS: ATTEND Surgery | DX: O03.6 Delayed or excessive hemorrhage following complete or unspecified spontaneous abortion (principal) | CPT/HCPCS: A0425; A0428 ==